=== PATIENT | female | born 1955 | race Caucasian/White ===

== ENCOUNTER 2024-03-09 10:51 | Emergency (ER) | payer MEDICARE ==
[~2024-03-09] VITALS: Ht 160 cm; Wt 56.8 kg
[2024-03-09] MEDS: TETanus/Pertussis (Acell)/Diphther VAC/PF (Tdap-Adult) 0.5ml syringe IMVAC ONE (11:19)
[2024-03-09] MEDS: LIDOcaine 1% W/epiNEPHrine 1:100,000 20ml vial IJ ONE (11:40)
[2024-03-09 12:28] VITALS: BP 122/78; PULSE 73; RESP 16; TEMP 98.1; O2SAT 97
== END 2024-03-09 12:30 | disposition home or self-care (01) ==
LOC: ER 10:52
DX: S51.812A Laceration without foreign body of left forearm, initial encounter (principal); F17.200 Nicotine dependence, unspecified, uncomplicated; W01.0XXA Fall on same level from slipping, tripping and stumbling without subsequent striking against object, initial encounter; Y93.89 Activity, other specified; Y92.89 Other specified places as the place of occurrence of the external cause; Y99.8 Other external cause status
CPT/HCPCS: 12002; 90715; 99283; A6402; A6449; G0008; Z7610; 90471

== ENCOUNTER 2024-03-16 09:06 | Emergency (ER) | payer MEDICARE ==
[~2024-03-16] VITALS: Ht 160 cm; Wt 58.3 kg
[2024-03-16 11:19] VITALS: BP 130/70; PULSE 68; RESP 18; TEMP 98.1; O2SAT 97
== END 2024-03-16 11:20 | disposition home or self-care (01) ==
LOC: ER 09:06
DX: S51.811D Laceration without foreign body of right forearm, subsequent encounter (principal); X58.XXXD Exposure to other specified factors, subsequent encounter
CPT/HCPCS: 99281; A6258; A6449